=== PATIENT | male | born 1935 | race Caucasian/White ===

== ENCOUNTER 2017-03-05 18:17 | Inpatient (IN) | payer OTHER ==
[~2017-03-05] VITALS: Ht 185.4 cm; Wt 95.3 kg
[~2017-03-05 18:17] MED LIST: ASPIRIN325 PO
[2017-03-05 18:20] VITALS: BP 138/76
[2017-03-05 19:33] LABS: URINE BILIRUBIN NEGATIVE (Negative); URINE BLOOD 3+ (Negative); URINE COLOR YELLOW; URINE GLUCOSE-RANDOM* NEGATIVE (Negative); URINE KETONES NEGATIVE (Negative); URINE NITRITE NEGATIVE (Negative); URINE PROTEIN (DIPSTICK) 2+ (Negative)
[2017-03-05 19:41] LABS: SQUAMOUS None Seen /LPF (0-3); URINE WBC 6-15 Few /HPF (0-5)
[2017-03-05 19:42] LABS: BACTERIA 1-9 Few /HPF (None Seen); CASTS None Seen /LPF (None Seen); CRYSTALS None Seen /LPF (None Seen); URINE RBC >20 Many /HPF (0-2)
[2017-03-05 21:24] LABS: HEMATOCRIT 42.2 % (42.0-52.0); MCH 32.3 pg (26.0-34.0); MCHC 33.2 g/dL (28.0-37.0); MCV 97.3 fL (80.0-100.0); PLATELET COUNT 289 thou/uL (150-400); RBC 4.34 mil/uL (4.50-6.00); RDW 14.6 % (10.5-14.5); WBC 11.1 thou/uL (4.0-11.0)
[2017-03-05 21:26] LABS: MANUAL DIFF YES
[2017-03-05 21:32] LABS: CALCIUM 8.8 mg/dL (8.5-10.1); CREATININE 1.5 mg/dL (0.7-1.3); POTASSIUM 4.6 mmol/L (3.5-5.1)
[2017-03-05 21:59] LABS: ABSOLUTE NEUTROPHILS 8.7 thou/uL (1.4-8.2); ANISOCYTOSIS SLIGHT; TOTAL CELL COUNT 100
[2017-03-05 23:42] VITALS: BP 149/64
[2017-03-06] MEDS ORDERED: CRESTOR10 MG PO (00:45)
[2017-03-06] MEDS ORDERED: HYDROCHLOROTH12.5 M1 PO (00:45)
[2017-03-06] MEDS ORDERED: LISINOPRIL10 MG PO (00:47)
[2017-03-06] MEDS ORDERED: LEVOTHYROXINE 0.1 MG PO (00:47)
[2017-03-06] MEDS ORDERED: LOPRESSOR50 PO (00:48)
[2017-03-06] MEDS ORDERED: PERCOCET PO (00:49)
[2017-03-06] MEDS ORDERED: OXYCODONE-ACET1 EACH PO (00:50)
[2017-03-06] MEDS ORDERED: VITAMIN E400 UNIT PO (00:51)
[2017-03-06] MEDS ORDERED: SALSALATE 500M500 MG PO (00:51)
[2017-03-06] MEDS ORDERED: CIPRO500 MG PO (00:54)
[2017-03-06 05:56] LABS: HEMOGLOBIN 13.5 gm/dL (14.0-18.0); MCH 32.6 pg (26.0-34.0); MCHC 33.7 g/dL (28.0-37.0); MCV 96.8 fL (80.0-100.0); RBC 4.13 mil/uL (4.50-6.00); RDW 14.4 % (10.5-14.5); WBC 9.8 thou/uL (4.0-11.0)
[2017-03-06 06:04] LABS: CALCIUM 8.4 mg/dL (8.5-10.1); CREATININE 1.6 mg/dL (0.7-1.3); POTASSIUM 4.5 mmol/L (3.5-5.1)
[2017-03-06 06:15] VITALS: BP 144/70
[2017-03-06 06:31] LABS: TROPONIN-I < 0.04 ng/mL (<0.04-0.07)
[2017-03-06 08:25] VITALS: BP 142/65
[2017-03-06 16:40] VITALS: BP 152/66
[2017-03-06 19:56] VITALS: BP 147/57
[2017-03-07 06:55] VITALS: BP 140/67
[2017-03-07 08:05] VITALS: BP 140/67
[2017-03-07 08:30] LABS: ALBUMIN 2.5 g/dL (3.4-5.0); CALCIUM 8.5 mg/dL (8.5-10.1); CREATININE 1.3 mg/dL (0.7-1.3); PHOSPHORUS 3.9 mg/dL (2.5-4.9); POTASSIUM 4.8 mmol/L (3.5-5.1)
[2017-03-07 08:33] VITALS: BP 157/76
[2017-03-07 09:02] LABS: APTT 32.6 Seconds (24.5-32.8); INR 1.1; PROTIME 11.9 Seconds (9.3-11.4)
[2017-03-07 15:34] VITALS: BP 147/68
[2017-03-07 20:05] VITALS: BP 142/67
[2017-03-08 05:00] VITALS: BP 160/72
[2017-03-08 07:17] VITALS: BP 147/66
[2017-03-08] MEDS ORDERED: FLOMAX0.4 MG PO (10:50)
[2017-03-08] MEDS ORDERED: MIRALAX17 GM PO (10:50)
[2017-03-08] MEDS ORDERED: PERCOCET PO (10:50)
[2017-03-08] MEDS ORDERED: CEFUROXIME500 MG PO (10:59)
== END 2017-03-08 15:29 | DRG 698 ==
LOC: ER 18:17 → 4S 22:06 → EROBS 22:06 → 4S 22:10
PROVIDERS: Hospitalist; Nurse Practitioner; Nurse Practitioner Acute Care; Radiology Vascular & Interventional Radiology
PROC: 0T9B30Z Drainage of Bladder with Drainage Device, Percutaneous Approach (ICD-10-PCS; principal; 2017-03-07)
DX: T83.038A Leakage of other urinary catheter, initial encounter (principal); E43 Unspecified severe protein-calorie malnutrition; N17.9 Acute kidney failure, unspecified; N12 Tubulo-interstitial nephritis, not specified as acute or chronic; E78.00 Pure hypercholesterolemia, unspecified; Z96.651 Presence of right artificial knee joint; I25.10 Atherosclerotic heart disease of native coronary artery without angina pectoris; F17.220 Nicotine dependence, chewing tobacco, uncomplicated; K59.00 Constipation, unspecified; I71.4 Abdominal aortic aneurysm, without rupture; E03.9 Hypothyroidism, unspecified; I12.9 Hypertensive chronic kidney disease with stage 1 through stage 4 chronic kidney disease, or unspecified chronic kidney disease; N18.3 Chronic kidney disease, stage 3 (moderate); Y83.9 Surgical procedure, unspecified as the cause of abnormal reaction of the patient, or of later complication, without mention of misadventure at the time of the procedure; Z86.73 Personal history of transient ischemic attack (TIA), and cerebral infarction without residual deficits; Z68.27 Body mass index [BMI] 27.0-27.9, adult; Z90.49 Acquired absence of other specified parts of digestive tract; Y92.89 Other specified places as the place of occurrence of the external cause
CPT/HCPCS: 10100; 50455